=== PATIENT | female | born 1985 | race Caucasian/White ===

== ENCOUNTER 2021-04-06 08:15 | Outpatient (RCR) | payer OTHER ==
[~2021-04-06 08:15] MED LIST: FLEXERIL 1010 MG/TAB PO
== END 2021-04-11 | disposition home or self-care (01) ==
LOC: WSPT
DX: S46.012D Strain of muscle(s) and tendon(s) of the rotator cuff of left shoulder, subsequent encounter (principal); S40.022D Contusion of left upper arm, subsequent encounter; W01.10XD Fall on same level from slipping, tripping and stumbling with subsequent striking against unspecified object, subsequent encounter

== ENCOUNTER 2021-04-19 09:00 | Outpatient (RCR) | payer OTHER | END 2021-04-21 13:56 | disposition home or self-care (01) | LOC: WSPT 09:00 | DX: S46.012A Strain of muscle(s) and tendon(s) of the rotator cuff of left shoulder, initial encounter (principal); S40.022A Contusion of left upper arm, initial encounter; W01.10XA Fall on same level from slipping, tripping and stumbling with subsequent striking against unspecified object, initial encounter ==

== ENCOUNTER 2023-05-22 05:32 | Day surgery (SDC) | payer BC ==
[~2023-05-22] VITALS: Ht 170.2 cm; Wt 106.8 kg
[~2023-05-22 05:32] MED LIST changes: +LR 1,000 ML IV SCH
[2023-05-22] MEDS ORDERED: LEXAPRO 10MG10 MG PO (05:59)
--- NOTE | 2023-05-22 06:01 | NUR ---
TELEPHONE CALL TO LUIS EMERY CRNA FOR INSTRUCTIONS REGARDING IV PLACEMENT FOR PROCEDURE TODAY. PER LUIS Seaman CRNA NURSING WILL NEED TO PLACE AN IV IN THE BACK OF THE OPERATIVE HAND WELL AN IV PLACED IN THE OPPOSITE ARM. PATIENT INFORMED OF IV REQUIREMENTS AND VERBALIZED UNDERSTANDING. SEE CHART FOR IV DETAILS.
[2023-05-22 06:54] VITALS: BP 121/76; PULSE 74; TEMP 98.1
[2023-05-22] MEDS ORDERED: Ondansetron 4 MG/2 ML VIAL IV PRN ×3 (07:00→08:15)
[2023-05-22] MEDS ORDERED: HYDROmorphone 2 MG/1 ML VIAL IV PRN ×2 (07:00→08:15)
[2023-05-22] MEDS ORDERED: fentaNYL 50 MCG/ML 2 ML VIAL IV PRN ×2 (07:00→08:15)
[2023-05-22] MEDS ORDERED: Midazolam 2 MG/2 ML VIAL ONE (07:11)
[2023-05-22 07:50] VITALS: BP 118/59; PULSE 86; TEMP 97.1
[2023-05-22] MEDS ORDERED: Morphine 4 MG/ML VIAL IV PRN (08:00)
[2023-05-22] MEDS ORDERED: D5 1/2 NS 1,000 ML IV SCH (08:00)
[2023-05-22 08:05] VITALS: BP 106/53; PULSE 68
[2023-05-22 08:20] VITALS: BP 116/71; PULSE 64
--- NOTE | 2023-05-22 08:45 | NUR ---
0750 RETURNS TO ROOM 8 PER CART FROM OR. AWAKE, ALERT. RESP UNLABORED HOB ELEVATED 40 DEGREES. VITAL SIGNS OBTAINED. BETH WRAPPED DRESSING RIGHT HAND CLEAN DRY AND INTACT. NEURO/CIRC CHECKS INTACT. MOVES FINGERS FREELY. DENEIS PAIN. DENIES PAIN. IN ROOM 0805 AWAKE, ALERT. RIGHT HAND ELEVATED. ICE PACK IN PLACE. 0815 HOB ELEVATED 70 DEGREES. TOLERATES PO SODA WITHOUT NAUSEA 0825 DISCHARGE INSTRUCTIONS REVIEWED. PATIENT VERBALIZES UNDERSTANDING. COPY PROVIDED IN DISCHARGE FOLDER 0835 SITS ON EDGE OF BED. DRESSES WITH ASSIST FROM
== END 2023-05-22 08:45 | disposition home or self-care (01) ==
LOC: SDCO 05:32
DX: M67.441 Ganglion, right hand (principal)
CPT/HCPCS: J0690; J2250; J2704; J7120